=== PATIENT | female | born 1960 | race Caucasian/White ===

== ENCOUNTER 2023-07-17 08:43 | Emergency (ER) | payer OTHER, SELFPAY ==
[2023-07-17 08:59] VITALS: BP 123/71; PULSE 69; RESP 16; TEMP 36.8; O2SAT 100
--- NOTE | 2023-07-17 09:03 | ED.GENADULT ---
HPI - General Adult General Chief complaint: Dental/Oral Stated complaint: Mouth Irritation Time Seen by Provider: 07/17/23 09:03 Mode of arrival: ambulatory Limitations: no limitations History of Present Illness HPI narrative: 62-year-old female presents concern for sore nose to the tip of her tongue. She reports she also has a canker sore on the left side of her tongue and some bumps on the right side of her tongue. She denies injury or trauma. Reports it has been there for about 4 days. Reports it is painful to eat. Reports she has been using salt water gargles. She also reports a black spot on her tongue that showed up this morning, along with black stools this morning, she did take Pepto-Bismol. MD complaint: sore tongue Related Data Home Medications Medication Instructions Recorded Confirmed escitalopram oxalate 10 mg tablet 10 mg PO HS 07/17/23 07/17/23 lovastatin 40 mg tablet 40 mg PO HS 07/17/23 07/17/23 valacyclovir 500 mg tablet 500 mg PO DAILY 07/17/23 07/17/23 Allergies Allergy/AdvReac Type Severity Reaction Status Date / Time codeine AdvReac Mild Rash Verified 07/17/23 09:04 Review of Systems Review of Systems: CONSTITUTIONAL: Denies malaise, chills, sweats, or fever. ENT: Denies rhinorrhea, congestion, sinus pain, otalgia or sore throat. Reports soreness to the tongue SKIN: Denies rash or itching. All systems reviewed & are unremarkable except as noted in HPI and below PMFSH Family History Family History (Updated 10/11/13 @ 07:13 by DOCTOR UNKNOWN) Sibling Carcinoma of colon Father Malignant neoplasm of prostate Family history of coronary artery disease Family history of heart disease in male family member before age 55 Mother Family history of malignant neoplasm of ovary Social History Social History Smoking status: Never smoker Alcohol intake: current Comments At time of signature, agree with nursing past medical, surgical, social and family history. There is no relevant family history pertinent to the presenting complaint Exam Narrative: GENERAL: Well-appearing, well-nourished, and in no acute distress. HEAD: Normocephalic, atraumatic. EYES: PERRLA, sclera clear, and EOMI. ENT: Nares clear, no rhinorrhea or epistaxis. Mucous membranes moist. TM pearly camacho with sharp light reflex bilaterally; no tragal tenderness. Oropharynx without erythema. Canker sore noted to the left lateral tongue, slight irritation noted to the tip of the tongue. Dark spot noted on the tongue. Tonsils not enlarged and without exudate. NECK: Supple. CHEST: No respiratory distress. Speaks in full sentences. HEART: Regular rate and rhythm. SKIN: Warm, dry, no visible rash. NEURO: Alert and oriented x3. PSYCH: Normal mood and affect Course Course Emergency Course: I advised the patient the her black stool and black area on the tongue are likely due to pepto-bismol, I advised her to follow-up with her PCP if symptoms do not resolve. Patient is aware of diagnosis, understands and agrees to treatment plan. Anticipatory guidance given. Patient agrees to follow-up as directed and is aware of reasons to seek care at the emergency department. Portions of this record may have been created with voice recognition software Level of Care: Express Care Visit Vital Signs Vital signs: Vital Signs Temperature 98.3 F 07/17/23 08:59 Pulse Rate 69 07/17/23 08:59 Respiratory Rate 16 07/17/23 08:59 Blood Pressure 123/71 07/17/23 08:59 Pulse Oximetry 100 07/17/23 08:59 Oxygen Delivery Room Air 07/17/23 08:59 Temperature 98.3 F 07/17/23 08:59 Pulse Rate 69 07/17/23 08:59 Respiratory Rate 16 07/17/23 08:59 Blood Pressure 123/71 07/17/23 08:59 Pulse Oximetry 100 07/17/23 08:59 Oxygen Delivery Room Air 07/17/23 08:59 Reviewed. Medical Decision Making MDM Narrative Medical decision making narrative: The patient was evaluated by myself in the emergenc
== END 2023-07-17 09:14 | disposition home or self-care (01) ==
PROVIDERS: Emergency Provider Nurse Practitioner
DX: K13.70 Unspecified lesions of oral mucosa (principal); K14.6 Glossodynia; E78.00 Pure hypercholesterolemia, unspecified; K21.9 Gastro-esophageal reflux disease without esophagitis; F41.9 Anxiety disorder, unspecified; F32.A Depression, unspecified; Z86.16 Personal history of COVID-19
CPT/HCPCS: 99213; G0463

== ENCOUNTER 2024-02-09 13:16 | Emergency (ER) | payer OTHER, SELFPAY ==
[2024-02-09 13:28] VITALS: BP 155/79; PULSE 77; RESP 18; TEMP 37.9; O2SAT 100
--- NOTE | 2024-02-09 13:50 | ED_ITS ---
HPI - URI/Sore Throat General Chief Complaint: Upper Respiratory Infection Stated Complaint: flu symptoms Time Seen by Provider: 02/09/24 13:51 Source: patient, RN notes reviewed and old records reviewed Mode of arrival: ambulatory Limitations: no limitations History of Present Illness HPI Narrative: Patient presents with complaints of flu-like symptoms that began this morning. She reports positive exposure to multiple family members that were diagnosed with influenza A yesterday Related Data Home Medications ?Medication ?Instructions ?Recorded ?Confirmed ?Last Taken ?Type escitalopram oxalate 10 mg tablet 10 mg PO HS 07/17/23 07/17/23 Unknown History lovastatin 40 mg tablet 40 mg PO HS 07/17/23 07/17/23 Unknown History valacyclovir 500 mg tablet 500 mg PO DAILY 07/17/23 07/17/23 Unknown History Allergies Allergy/AdvReac Type Severity Reaction Status Date / Time codeine Allergy Mild Rash Verified 02/09/24 13:51 Review of Systems Review of Systems: All systems reviewed & are unremarkable except as noted in HPI and below Constitutional: Constitutional: Reports no additional constitutional complaints, Reports body ache(s), Reports fever(s), Reports headache(s) and Re ports lethargy ENT: Reports system reviewed and no additional complaints, except as documented and Reports nasal discharge Cardiovascular: Cardiovascular: Reports no additional cardiovascular complaints Respiratory: Respiratory: Reports no additional respiratory complaints and Reports cough Gastrointestinal: Gastrointestinal: Reports no additional gastrointestinal complaints [facility] Family History Family History Sibling Carcinoma of colon Father Malignant neoplasm of prostate Family history of coronary artery disease Family history of heart disease in male family member before age 55 Mother Family history of malignant neoplasm of ovary Social History Social History Smoking status: Never smoker Alcohol intake: current Comments At the time of my signature, I reviewed and agree with the nursing past medical, surgical, social, and family history. There is no relevant family history pertinent to the patient complaint. Exam Const: General: cooperative, no acute distress, alert and awake Orientation/consciousness: oriented to person, oriented to place and oriented to time HENMT: Head: normal to inspection Resp: Effort & Inspection: normal respiratory effort and able to speak in complete sentences Auscultation: clear to auscultation bilaterally, no crackles, no rales, no rhonchi and no wheezes Cardio: Palpation: normal PMI Rate: regular rate Rhythm: regular rhythm Heart sounds: S1 normal heart sound present and S2 normal heart sound present Neuro: General: oriented to person, oriented to place and oriented to time Cranial nerves: Yes CN's II-XII intact bilaterally Psych: Appearance: grossly normal Thought process: Normal thought process present Insight: Good insight present (Psych) Judgement: Good judgement present (Psych) Course Course Level of Care: Express Care Visit Vital Signs Vital signs: Vital Signs Temperature 100.3 F H 02/09/24 13:28 Pulse Rate 77 02/09/24 13:28 Respiratory Rate 18 02/09/24 13:28 Blood Pressure 155/79 H 02/09/24 13:28 Pulse Oximetry 100 02/09/24 13:28 Oxygen Delivery Room Air 02/09/24 13:28 Temperature 100.3 F H 02/09/24 13:28 Pulse Rate 77 02/09/24 13:28 Respiratory Rate 18 02/09/24 13:28 Blood Pressure 155/79 H 02/09/24 13:28 Pulse Oximetry 100 02/09/24 13:28 Oxygen Delivery Room Air 02/09/24 13:28 Reviewed MDM - URI/Sore Throat MDM Narrative Medical decision making narrative: patient nontoxic appearing. History, exam, labs consistent with influenza. Start Tamiflu. Discharge instructions reviewed with patient, as well as provided in writing per nursing staff. The instructions also include specific and strict return/GO TO THE ER as well as f/u information. All questions have been answered, and the patient deny any further questions with discharge and discharge plan. Some parts of this dictation were generated by voice recognition software and may contain typographical and/or grammatical inaccuracies. Differential Diagnosis Differential diagnosis: Likely upper respiratory infection, otitis media, sinusitis, viral infection, influenza and pharyngitis Medical Records Attestation: I reviewed the patient's medical records. Lab Data Attestation: I reviewed the patient's lab results. Discharge Plan Discharge Clinical Impression: Influenza Patient Disposition: Home, Self-Care Condition: Stable Instructions: Antibiotic Form, Influenza (ED) Additional Instructions: Take medications as prescribed. Follow with primary care provider. Emergency department for new or worse symptoms. Patient Language: Ukrainian Prescriptions: New oseltamivir [Tamiflu] 75 mg capsule 75 mg PO Q12H 5 Days Qty: 10 0RF No Action lovastatin 40 mg tablet 40 mg PO HS valacyclovir 500 mg tablet 500 mg PO DAILY escitalopram oxalate 10 mg tablet 10 mg PO HS Follow-up/Referrals: UNKNOWN,DOCTOR [Primary Care Provider] - 2 Weeks Time of Disposition: 14:04
[2024-02-09 14:17] LABS: EDCOVIDSCREEN Negative (Negative); EDINFLUASCREEN Positive (Negative); EDINFLUBSCREEN Negative (Negative)
== END 2024-02-09 14:10 | disposition home or self-care (01) ==
PROVIDERS: Emergency Provider Nurse Practitioner Family
DX: J10.1 Influenza due to other identified influenza virus with other respiratory manifestations (principal); Z20.822 Contact with and (suspected) exposure to COVID-19; E78.00 Pure hypercholesterolemia, unspecified; K21.9 Gastro-esophageal reflux disease without esophagitis; F41.9 Anxiety disorder, unspecified; F32.A Depression, unspecified; Z86.16 Personal history of COVID-19
CPT/HCPCS: 87426; 87804; 99213; G0463